=== PATIENT | female | born 1960 | race Two or more races ===

== ENCOUNTER → 2019-01-16 | Outpatient (CLI) | payer MEDICARE, OTHER ==
[~2019-01-16] MED LIST: ALBU90OI; AMITIZA; BUSP15; CETI10; CYAN1000I; CYCL10 PO; DULO30; ERGO50000; ESTR1; ESTR2; HYDACE5 PO; IBUP800 PO; NAPR500; POLY17UD; PRAM.5; PRED20 PO; PROM25; Pataday2.5 ML; THYR60; THYROID; URSO300; [UNRECOGNIZED DRUG - OTHER]; [UNRECOGNIZED DRUG - OTHER]
[2019-01-16 14:57] LABS: Free Thyroxine 0.8 ng/dL (0.70-1.60)
[2019-01-16 14:58] LABS: Thyroid Stimulating Hormone 1.55 uIU/mL (0.360-4.800)
== END | disposition home or self-care (01) ==
LOC: LAB SHORT 14:23 → LAB 14:23
PROVIDERS: Hospitalist
DX: E03.9 Hypothyroidism, unspecified (principal)
CPT/HCPCS: 84439; 84443

== ENCOUNTER → 2021-10-05 | Outpatient (CLI) | payer MEDICARE, OTHER ==
[2021-10-05 14:25] LABS: Thyroid Stimulating Hormone 1.78 uIU/mL (0.360-4.800); Triiodothyronine, Free 2.05 pg/mL (2.18-3.98)
== END | disposition home or self-care (01) ==
LOC: LAB SHORT 11:55
PROVIDERS: Hospitalist
DX: E03.9 Hypothyroidism, unspecified (principal)
CPT/HCPCS: 84439; 84443; 84481

== ENCOUNTER → 2022-08-15 | Outpatient (CLI) | payer MEDICARE, OTHER ==
[2022-08-15 16:15] LABS: Free Thyroxine 1.23 ng/dL (0.70-1.60)
[2022-08-15 16:17] LABS: Thyroid Stimulating Hormone 0.808 uIU/mL (0.360-4.800); Triiodothyronine, Free 2.5 pg/mL (2.18-3.98)
== END ==
LOC: LAB SHORT 10:25 → LAB 10:25
PROVIDERS: Hospitalist
DX: E03.9 Hypothyroidism, unspecified (principal)
CPT/HCPCS: 84439; 84443; 84481

== ENCOUNTER → 2023-09-17 | Outpatient (CLI) | payer MEDICARE, OTHER ==
[2023-09-17 16:17] LABS: Free Thyroxine 1.03 ng/dL (0.70-1.60); Thyroid Stimulating Hormone 1.62 uIU/mL (0.360-4.800)
== END ==
LOC: LAB 12:10 → LAB SHORT 12:10
PROVIDERS: Hospitalist
DX: E03.9 Hypothyroidism, unspecified (principal)
CPT/HCPCS: 84439; 84443

== ENCOUNTER → 2024-08-26 | Outpatient (CLI) | payer OTHER ==
[2024-08-26 14:45] LABS: Free Thyroxine 1.06 ng/dL (0.70-1.60)
[2024-08-26 14:49] LABS: Thyroid Stimulating Hormone 1.49 uIU/mL (0.360-4.800); Triiodothyronine, Free 1.77 pg/mL (2.18-3.98)
== END ==
LOC: LAB 13:25 → LAB SHORT 13:25
PROVIDERS: Hospitalist
DX: E03.9 Hypothyroidism, unspecified (principal)
CPT/HCPCS: 84439; 84443; 84481